=== PATIENT | female | born 1965 | race Caucasian/White ===

== ENCOUNTER 2020-08-27 14:59 | Outpatient (RCR) | payer OTHER, SELFPAY | END 2020-10-23 10:31 | disposition home or self-care (01) | LOC: HO.OT 14:59 | PROVIDERS: PCP Internal Medicine; Visit Provider Internal Medicine | DX: Z13.89 Encounter for screening for other disorder (principal) ==

== ENCOUNTER 2025-06-03 10:29 | Outpatient (AMB) | payer OTHER, SELFPAY ==
--- NOTE | 2025-06-03 10:47 | MHC.PC.OV ---
Vital Signs 06/03/25 10:53 Height 5 ft 1.65 in Weight 239 lb 6 oz BMI 44.3 BP 126/74 Blood Pressure Location Lt brachial Position Sitting Respiration 12 Pulse 81 Pulse Source Pulse Oximeter Temp 97.8 F Temp Source Oral Pulse Oximetry (%) 96 Oxygen Delivery Method Room Air Intake Visit Reasons: est care/medications Intake Note: New patient visit Field Handyman Required: No Medication List - Last Reconciled 06/03/25 by Dominga Jimenez MD albuterol sulfate 90 mcg/actuation 2 puffs inhalation Q4H PRN budesonide-formoterol 160-4.5 mcg/actuation (Symbicort) 2 puffs inhalation BID dupilumab (Dupixent) 300 mg subcut Q2W estradiol 1 patch topical QWEEK montelukast 10 mg PO QPM oxycodone-acetaminophen 10-325 mg 1 tab PO Q6H PRN pregabalin 225 mg PO BID ropinirole 2 mg PO DAILY sertraline 100 mg PO BID sumatriptan succinate mg PO Dental Screening Dental Screen Date: 06/03/25 Did you have a dental visit in the last 12 months?: Yes Did you have a dental problem in the last 6 months where you did not have access to dental care?: No Was dental information given to patient?: Patient has dentist HPI HPI Comments History of Present Illness Details The patient is a 60 year old female with a past medical history of hld, asthma, migraines, OA, CTS, GERD presenting to [facility]. Transfer from Dr Price. MSK -s/p RTKR 2022 -s/p carpal tunnel release right GI: history of Reese fundoplication. Has had multiple EGD in the past. Follows with Dr Sun -now at [facility]. BH: Stable on zoloft 200mg daily. Migraines -stable on imitrex Mammo 09/2024 Colonoscopy-appt 06/06/2025 s/p hysterectomy in 2012 Shingrix 2022 ROS CONSTITUTIONAL: Denies weight loss, fever and chills. HEENT: Denies changes in vision and hearing. RESPIRATORY: Denies SOB and cough. CV: Denies palpitations and CP GI: Denies abdominal pain, nausea, vomiting and diarrhea. : Denies dysuria and urinary frequency. MSK: Denies new myalgia and joint pain. SKIN: Denies rash and pruritus. NEUROLOGICAL: Denies headache PSYCHIATRIC: Denies recent changes in mood. PHYSICAL EXAM: GENERAL: Alert and oriented x 3. NAD EYES: EOMI. Anicteric. HENT: Moist mucous membranes. No scleral icterus. No cervical lymphadenopathy. LUNGS: Clear to auscultation bilaterally. CARDIOVASCULAR: Regular rate and rhythm. No murmur. No JVD. ABDOMEN: Soft, non-tender +bs EXTREMITIES: No edema. Non-tender. SKIN: No rashes or lesions. Warm. NEUROLOGIC: No focal neurological deficits. CN II-XII grossly intact PSYCHIATRIC: Cooperative. Appropriate mood and affect [facility] Surgical History History of Reese fundoplication H/O: hysterectomy History of surgical removal of ganglion cyst History of carpal tunnel surgery History of total right knee replacement Family History Mother Asthma Clotting disorder Cervical cancer Lung cancer Anxiety Depression Father HTN (hypertension) Diabetes High cholesterol Cardiovascular disease Other Alcoholism FH: mental illness Substance abuse Social History Housing: House service: No Current occupational status: unemployed Cognitive needs: No Hearing needs: No Vision needs: No Questionnaire PHQ-9 Over the last 2 weeks, how often have you been bothered by any of the following problems? 1. Little interest or pleasure in doing things: not at all 2. Feeling down, depressed, or hopeless: not at all 3. Trouble falling or staying asleep, or sleeping too much: more than half the days 4. Feeling tired or having little energy: not at all 5. Poor appetite or overeating: not at all 6. Feeling bad about yourself - or that you are a failure or have let yourself or your family down: not at all 7. Trouble concentrating on things, such as reading the newspaper or watching television: not at all 8. Moving or speaking so slowly that other people could have noticed. Or the opposite - being so fidgety or restless that you have been moving around a lot more than usual: not at all 9. Thoughts that you would be better off or of hurting yourself in some way: not at all Total score: 2 Depression Screening Interpretation: Negative Depression Screening Done: Yes 79584 - PHQ-9 Billing: Yes Source: Developed by Drs. Teddy Kaiser, Susanna Berg, Carlos Ha and colleagues, with an educational chico from [employer]. Thrive Questionnaire Date Thrive assessed: 05/29/25 I am a: Patient What is your living situation today?: I have a steady place to live Within the past 12 months, did the food you bought not last and you didn't have the money to get more?: Never true Within the past 12 months, did you worry whether your food would run out before you got money to buy more?: Never true Do you have trouble paying for medicines?: No Do you have trouble getting transportation to medical appointments?: No Do you have trouble paying your heating and electricity bill?: No Do you have trouble taking care of your child, family member or friend?: No Do you have trouble with day-to-day activities such as bathing, preparing meals, shopping, managing finances, etc.?: No Are you currently unemployed and looking for a job?: Yes Are you interested in more education?: No Please select the resources that you would like help with: None Currently or been in a relationship where the following occur: No concerns reported THRIVE Score: 0 AUDIT C Alcohol Use Questionnaire (AUDIT-C) 1. How often do you have a drink containing alcohol?: Monthly or less 2. How many drinks containing alcohol do you have on a typical day when you are drinking?: 1 or 2 3. How often do you have six or more drinks on one occasion?: Never Total Score: 1 EV-7 AMB Questionnaire EV-7 Date EV - 7 assessed: 06/03/25 Feeling nervous, anxious, or on edge: 0 = Not at all Not being able to stop or control worryin = Not at all Worrying too much about different things: 0 = Not at all Trouble relaxin = Not at all Being so restless that it is hard to sit still: 0 = Not at all Becoming easily annoyed or irritable: 0 = Not at all Feeling afraid as if something awful might happen: 0 = Not at all Total EV-7 score (0-4 normal; 5-9 mild; 10-14 moderate; 15-21 severe): 0 Source: Developed by Drs. Teddy Kaiser, Susanna Berg, Carlos Ha and colleagues, with an educational chico from [employer]. EV-7 Assessment Billing EV-7 Assessment Tool: EV-7 Assessment 03766 Physical exam (Primary Care) Vital Signs: Last Vital Signs Temp 97.8 F 06/03/25 10:53 Pulse 81 06/03/25 10:53 Resp 12 06/03/25 10:53 BP 126/74 06/03/25 10:53 Pulse Ox 96 06/03/25 10:53 Oxygen Delivery Method Room Air 06/03/25 10:53 BMI result Body Mass Index 44.3 PHQ-9: PHQ-9 Score PHQ-9: Total score 2 06/09/25 11:17 Depression Screening Interpretation: Negative Thrive Assessment: Date of Thrive Assessment Date Thrive assessed 05/29/25 06/03/25 10:50 Currently or been in a relationship where the following occur: No concerns reported Coding Level of Care Code New Pt Level 4 (22370) Complex EM visit Add On G2211 Diagnoses Encounter to establish care Z76.89 Gastroesophageal reflux disease, unspecified whether esophagitis present K21.9 Esophagitis presence: esophagitis presence not specified Additional Codes EV-7 Assessment Billing - EV-7 Assessment Tool: VE-7 Assessment 50391 ([id number]) PHQ-9 - 37648 - PHQ-9 Billing: Yes ([id number]) Assessment & Plan Assessment & Plan (1) Encounter to establish care: Code(s): Z76.89 - Persons encountering health services in other specified circumstances (2) GERD (gastroesophageal reflux disease): Code(s): K21.9 - Gastro-esophageal reflux disease without esophagitis Category: Medical Qualifiers: Esophagitis presence: esophagitis presence not specified Qualified Code(s): K21.9 - Gastro-esophageal reflux disease without esophagitis Plan 60 y/o female to establish care Past medical, surgical, social reviewed Asthma-stable. Depression-stable on current medications Orders: Orders Complete Blood Count Auto Diff 06/03/25 G25.81 - Restless legs syndrome, I87.2 - Venous insufficiency (chronic) (peripheral), I89.0 - Lymphedema, not elsewhere classified, J45.909 - Unspecified asthma, uncomplicated, K21.9 - Gastro-esophageal reflux disease without esophagitis Comprehensive Met. Panel 06/03/25 G25.81 - Restless legs syndrome, I87.2 - Venous insufficiency (chronic) (peripheral), I89.0 - Lymphedema, not elsewhere classified, J45.909 - Unspecified asthma, uncomplicated, K21.9 - Gastro-esophageal reflux disease without esophagitis Hemoglobin A1c 06/03/25 G2.81 - Restless legs syndrome, I87.2 - Venous insufficiency (chronic) (peripheral), I89.0 - Lymphedema, not elsewhere classified, J45.909 - Unspecified asthma, uncomplicated, K21.9 - Gastro-esophageal reflux disease without esophagitis Lipid Panel 06/03/25 G2.81 - Restless legs syndrome, I87.2 - Venous insufficiency (chronic) (peripheral), I89.0 - Lymphedema, not elsewhere classified, J45.909 - Unspecified asthma, uncomplicated, K21.9 - Gastro-esophageal reflux disease without esophagitis TSH reflex Free T4 06/03/25 G25.81 - Restless legs syndrome, I87.2 - Venous insufficiency (chronic) (peripheral), I89.0 - Lymphedema, not elsewhere classified, J45.909 - Unspecified asthma, uncomplicated, K21.9 - Gastro-esophageal reflux disease without esophagitis Vitamin B12 and Folate 06/03/25 G2.81 - Restless legs syndrome, I87.2 - Venous insufficiency (chronic) (peripheral), I89.0 - Lymphedema, not elsewhere classified, J45.909 - Unspecified asthma, uncomplicated, K21.9 - Gastro-esophageal reflux disease without esophagitis Medications: New pregabalin 200 mg PO BID 180 caps 1RF omeprazole 40 mg PO DAILY 90 caps 3RF sertraline 200 mg PO DAILY Zepbound (tirzepatide (weight loss)) for 4 weeks 2.5 mg (0.5 mL) subcut QWEEK 6 mL 1RF NS
[2025-06-03 10:53] VITALS: BP 126/74; PULSE 81; RESP 12; TEMP 36.6; O2SAT 96; BMI 44.3
--- OUTSIDE RECORDS SUMMARY | 2025-06-03 11:13 | XMS_ITS ---
Author Name [facility] Organization Unknown Care Team Organization Name Specialty Phone Email Start Date End Lance flanagan [facility] 08/20/2022 08/20/2022
--- OUTSIDE RECORDS SUMMARY | 2025-06-03 11:13 | XMS_ITS | Patient Health Record ---
[facility] Address [address] [place] [address] Care Team Providers Care Half Backer Name Role Phone Matthew Arellano MD Primary Care Provider Valeriy Lauren Unavailable [phone] Allergies No Known Allergies Reason For Referral No Information Medications Medication SIG (Take, Route, Frequency, Duration) Notes Start Date End Date Status Estradiol 0.025 MG/24HR Transdermal; Dur ation: 84 Active Folic Acid 1 MG TAKE 2 TABLETS BY MO UT EVERY DAY Oral; Duration: 90 Active oxyCODONE-Acetaminophen 10-325 MG Oral; Duration: 28 Active Pregabalin 200 MG Oral; Duration: 30 Active rOPINIRole HCl 2 MG Oral; Duration: 30 Active ProAir HFA Active Omeprazole 40 MG 1 capsule 30 minutes before morning meal Orally Once a day; Duration: 30 day(s) Active Morphine Not-Taking Zoloft 200MG Active Zoloft Not-Taking Ondansetron HCl 4 MG 1 tablet Orally Onc e a day; Duration: 30 day(s) Active Prevacid Not-Taking Montelukast Sodium 10 MG TAKE 1 TABLET B Y MOUTH EVERY EVENING Oral; Duration: 90 Active SUMAtriptan Succinate 100 MG PLEASE SEE ATTACHED FOR DETAILED DIRECTIONS Oral; Duration: 30 Active Social History Alcohol Screen Question Answer Notes Did you have a drink containing alcohol in the p ast year? No Points 0 Interpretation Negative Tobacco use other than smoking: Question Answer Notes Are you an other tobacco user? No Problems Problem Type SNOMED Code ICD Code Onset Dates Problem Status W/U Status Risk Notes Problem Neuropathy (886603528) Neuropathy (G62.9) Active confirmed Problem Bilateral atherosclerosis of arteries of lower limbs (disorder) (45994123661339285 ) Atherosclerosis of [place] artery of both lower extremities, with unspecified presence of clinical manifestation (I70.203) Active confirmed Problem Localized, primary osteoarthritis of the ankle and/or foot (907072039) Primary osteoarthritis of right foot (M19.071) Active confirmed Problem Localized, primary osteoarthritis of the ankle and/or foot (652800656) Primary osteoarthritis of left foot (M19.072) Active confirmed Plan Of Treatment Pending Test Test Name Order Date X ray : Foot, left 3V 07/07/2023 X ray : Foot, right 3V 07/07/2023 Insurance Providers Payer Name Payer Address Payer Phone Subscriber Number Group Number Insured Name Patient Relationship to Insured Coverage Start Date Coverage End Date [facility] [address] [place] [address] [phone] [id number] Shital Santos Self - patient is the insured Medical (General) History Medical History History ICD Code Asthma J45.909 Anxiety F41.9 Chicken pox B01.9 Back,Hip,and Knee pain Fibromyalgia Gall bladder problems Headaches/Migraines Hiatal hernia nerve disorder Numbness Osteoporosis osteoarthritis Poor circulation Reflux ( GERD) Sciatica Stomach ulcer Warts Lymphedema Neuropathy RLS Surgical History Surgery Date(Month/Year) foot surgery wrist surgery, carpal tunnel and ganglio n cyst 2012 spinal cord stimulator 2009 gall bladder 2007 hysterectomy 2006 plantar fascitis TMJ jaw knee replacement, right 2020
--- OUTSIDE RECORDS SUMMARY | 2025-06-03 11:13 | XMS_ITS | Patient Health Record ---
Author Organization [facility] Address [address] [place] [address] Support Name Relationship Address Phone ROSA ISELA SUGGS Guarantor Unknown [phone] Reason For Referral No Information Medications Medication SIG (Take, Route, Fr equency, Duration) Notes Start Date End Date Status Lasix 20MG 1 ORAL daily; Duration: -3 [facility] [place]- 01/28/2014 Active ProAir HFA 90MCG 2 Inhalation four ti mes daily; Duration: -3 [facility] [place]- 01/28/2014 Active OxyCONTIN 30MG 1 ORAL twice daily; Duration: -3 [facility] [place]- Active Zocor 5MG 1 ORAL daily; Duration: -3 [facility] [place]- 01/28/2014 Active Zoloft 150 mg 0.5TAB ORAL daily; Duration: -3 [facility]- 12/31 Active Problems Problem Type SNOMED Code ICD Code Onset Dates Problem Status W/U Status Risk Notes Problem Lymphatic edema (32111907) 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) Active confirmed Major Problem Acute upper respiratory infection (85706184) Acute upper respiratory infections of unspecified site (465.9) Active confirmed Other Problem Asthma (disorder) (270850697) Asthma, unspecified, unspecified status (493.90) Active confirmed Major Problem Esophageal reflux (791000662) Esophageal reflux (530.81) Active confirmed Major Problem Obstruction of bile duct (99422571) Obstruction of bile duct (576.2) Active confirmed Major Problem Breast lump (64915392) Lump or mass in breast (611.72) Active confirmed Diag Problem Osteoarthritis (248265537) Osteoarthrosis, unspecified whether generalized or localized, unspecified site (715.90) Active confirmed Major Problem Gynecological examination normal (036480698370654) Routine gynecological examination (V72.31) Active confirmed Major Problem Counseling (747172537) Counseling NOS (V65.40) Active confirmed Diag Plan Of Treatment No Information Insurance Providers Payer Name Payer Address Payer Phone Subscriber Number Group Number Insured Name Patient Relationship to Insured Coverage Start Date Coverage End Date [facility] [address] [place] [address] [id number] ROSA ISELA SUGGS Self - patient is the insured
== END 2025-06-03 11:23 | disposition home or self-care (01) ==
LOC: HO.HMCFM 10:30
PROVIDERS: PCP Internal Medicine; Visit Provider Internal Medicine
DX: Z76.89 Persons encountering health services in other specified circumstances (principal); K21.9 Gastro-esophageal reflux disease without esophagitis

== ENCOUNTER → 2025-06-03 10:29 | Outpatient (BNVA) | payer OTHER, SELFPAY | PROVIDERS: PCP Internal Medicine; Visit Provider Internal Medicine | DX: Z76.89 Persons encountering health services in other specified circumstances (principal); Z13.31 Encounter for screening for depression; Z13.30 Encounter for screening examination for mental health and behavioral disorders, unspecified; K21.9 Gastro-esophageal reflux disease without esophagitis | CPT/HCPCS: 96127; 99202 ==

== ENCOUNTER 2025-06-03 11:46 | Outpatient (REF) | payer OTHER, SELFPAY ==
[2025-06-03 13:59] LABS: MANUAL DIFF FLAG NO
[2025-06-03 14:12] LABS: Hematocrit 39.3 % (37.0-47.0); Hemoglobin 11.8 g/dl (12.0-16.0); Imm Gran Abs Auto 0.02 X10*3/uL (0.00-0.03); Imm Gran Pct Auto 0.2 % (0.0-0.4); Lymphocytes Absolute Auto 2.6 X10*3/uL (1.2-4.9); Mean Corpuscular HGB Conc 30.0 g/dl (31.0-35.0); Mean Corpuscular Hemoglobin 23.5 pg (27.0-33.0); Mean Corpuscular Volume 78.1 fL (80.0-98.0); NRBC Abs Auto 0.000 X10*3/uL (0.0-0.012); NRBC Pct Auto 0.0 /100WBC (0.0-0.2); Platelet Count 343 X10*3/uL (160-400); Red Blood Count 5.03 X10*6/uL (4.20-5.50); White Blood Count 8.1 X10*3/uL (4.8-10.8)
[2025-06-03 14:27] LABS: Hemoglobin A1C 110.8840 umol/L; Total Hemoglobin (HGBA1C) 3196.1381 umol/L
[2025-06-03 14:40] LABS: Alanine Aminotransferase 16 U/L (0-31); Albumin Level 3.9 g/dL (3.5-5.0); Alkaline Phosphatase 140 U/L (39-117); Anion Gap 11 (12-20); Aspartate Amino Transferase 22 U/L (5-31); Blood Urea Nitrogen 13 mg/dL (9-16); Calcium 8.8 mg/dL (8.4-10.2); Carbon Dioxide 29 mmol/L (22-29); Chloride 102 mmol/L (96-108); Cholesterol 203 mg/dL (<200); Estimated Glomerular Filt Rate > 60; HDL Cholesterol 46 mg/dL (>40); Potassium 4.2 mmol/L (3.3-5.1); Sodium 138 mmol/L (135-145); Total Protein 7.5 g/dL (6.5-8.0); Triglycerides 241 mg/dL (<150)
[2025-06-03 14:55] LABS: Folate 3.3 ng/mL (> or = 4.0); Vitamin B12 225 pg/mL (200-900)
== END 2025-06-03 11:47 | disposition home or self-care (01) ==
LOC: HO.WFDLDS 11:46
PROVIDERS: Visit Provider Internal Medicine
DX: K21.9 Gastro-esophageal reflux disease without esophagitis (principal); I87.2 Venous insufficiency (chronic) (peripheral); I89.0 Lymphedema, not elsewhere classified; G25.81 Restless legs syndrome; J45.909 Unspecified asthma, uncomplicated
CPT/HCPCS: 36415; 80053; 80061; 82607; 82746; 83036; 84443; 85025